=== PATIENT | male | born 1945 | race Two or more races ===

== ENCOUNTER 2023-02-07 18:08 | Emergency (ER) | payer MEDICARE ==
[~2023-02-07] VITALS: Ht 152.4 cm; Wt 72.6 kg
[2023-02-07] MEDS ORDERED: IV NS 0.9% 1,000 ML BAG IV ONE (18:30)
[2023-02-07 18:40] LABS: BASOPHILS % (AUTO) 0.4 % (0.0-2.0); HEMATOCRIT 39 % (39-51); HEMOGLOBIN 12.9 g/dL (13.5-17.5); LYMPHOCYTES # (AUTO) 0.9 K/uL (0.8-4.8); LYMPHOCYTES % (AUTO) 10.3 % (20.0-44.0); MEAN CORPUSCULAR HEMOGLOBIN 32 PG (26.0-33.0); MEAN CORPUSCULAR HGB CONC 33 g/dl (31.0-36.0); MEAN CORPUSCULAR VOLUME 97 fL (80-96); MONOCYTES # (AUTO) 0.7 K/uL (0.1-1.30); MONOCYTES % (AUTO) 8.6 % (2.0-12.0); NEUTROPHILS % (AUTO) 80.7 % (43.0-81.0); PLATELET COUNT (AUTO) 255 K/uL (150-450); RED BLOOD CELL COUNT(AUTO) 4.02 MIL/uL (4.5-6.0); WHITE BLOOD COUNT (AUTO) 8.6 K/uL (4.3-11.0)
[2023-02-07] MEDS ORDERED: ONDANSETRON HCL/PF 4 MG/2 ML VIAL ONE (18:41)
[2023-02-07] MEDS ORDERED: MORPHINE SULFATE INJ 4 MG/ML DISP.SYRIN ONE (18:42)
[2023-02-07 18:49] LABS: CALCIUM, SERUM 9.3 mg/dL (8.5-10.1); CARBON DIOXIDE 20 mmol/L (21-32); CHLORIDE 94 mmol/L (98-107); CREATININE 1.1 mg/dL (0.6-1.3); GLUCOSE 109 mg/dL (74-106); POTASSIUM 3.9 mmol/L (3.5-5.1); SODIUM SERUM 130 mmol/L (136-145); UREA NITROGEN, BLOOD 11 mg/dL (7-18)
[2023-02-07 18:56] LABS: ALBUMIN 3.7 g/dL (3.4-5.0); ALKALINE PHOSPHATASE 76 U/L (46-116); ASPARTATE AMINOTRANSFERASE 21 U/L (15-37); BILIRUBIN,DIRECT 0.2 mg/dL (0.0-0.2); BILIRUBIN,TOTAL 0.5 mg/dL (0.2-1.0); LIPASE 106 U/L (73-393); TOTAL PROTEIN, SERUM 7.2 g/dL (6.4-8.2)
[2023-02-07] MEDS ORDERED: ONDANSETRON HCL/PF 4 MG/2 ML VIAL IVP ONE (19:00)
[2023-02-07] MEDS ORDERED: MORPHINE SULFATE INJ 2 MG/ML DISP.SYRIN IV ONE (19:00)
[2023-02-07 19:13] LABS: ALANINE AMINOTRANSFERASE 18 U/L (12-78)
[2023-02-07 20:10] LABS: APPEARANCE,URINE CLEAR (CLEAR); BILIRUBIN,URINE 1+ (NEGATIVE); BLOOD, URINE NEGATIVE Ery/uL (NEGATIVE); COLOR,URINE YELLOW (YELLOW); KETONES,URINE 3+ mg/dL (NEGATIVE); LEUKOCYTE ESTERASE ,URINE NEGATIVE (NEGATIVE); NITRITE, URINE NEGATIVE (NEGATIVE); PROTEIN,URINE TRACE mg/dl (NEGATIVE); UGLUCOSE NEGATIVE (NEGATIVE); UROBILINOGEN,URINE 0.2 EU/dL (0.2)
[2023-02-07 20:19] LABS: ADD URINE CULTURE NO; BACTERIA,URINE None seen /HPF (None Seen); MUCUS,URINE Few /LPF (None Seen); RBC,URINE 0-2 /HPF (0-2); SQUAMOUS EPITHELIAL CELL,UR 0-2 /HPF (None Seen); WBC,URINE 0-2 /HPF (0-3)
[2023-02-07 21:43] VITALS: BP 119/89; TEMP 98.1; O2SAT 98
== END 2023-02-07 21:44 | disposition left against medical advice (07) ==
LOC: ER 18:28
DX: R10.33 Periumbilical pain (principal); I10 Essential (primary) hypertension; R11.2 Nausea with vomiting, unspecified; E03.9 Hypothyroidism, unspecified; F41.9 Anxiety disorder, unspecified; Z88.2 Allergy status to sulfonamides; Z60.2 Problems related to living alone
CPT/HCPCS: 99285; 74177; 96374; 71045; 96361; 96375; 85025; 80048; 87086; 83690; 80076; 81001; 36415; 84484; 82962; J2270; J2405; J7030; J7050; Q9967

== ENCOUNTER 2025-01-20 17:25 | Inpatient (IN) | payer MEDICARE ==
[~2025-01-20] VITALS: Ht 170.2 cm; Wt 64.4 kg
[2025-01-20] MEDS ORDERED: FENTANYL PF 100MCG/2ML AMPUL ONE (19:30)
[2025-01-21 09:06] LABS: PLATELET COUNT (AUTO) 263 K/uL (150-450); RED BLOOD CELL COUNT(AUTO) 3.71 MIL/uL (4.5-6.0); RED CELL DISTRIBUTION WIDTH 15.4 % (11.5-15.0); WHITE BLOOD COUNT (AUTO) 6.7 K/uL (4.3-11.0)
[2025-01-21 09:13] LABS: CALCIUM, SERUM 9.1 mg/dL (8.5-10.1); CREATININE 1.1 mg/dL (0.6-1.3); SODIUM SERUM 138.0 mmol/L (136-145); UREA NITROGEN, BLOOD 23.0 mg/dL (7-18)
[2025-01-21 09:19] LABS: ASPARTATE AMINOTRANSFERASE 63.0 U/L (15-37); TOTAL PROTEIN, SERUM 7.6 g/dL (6.4-8.2)
[2025-01-21] MEDS ORDERED: ZOLPIDEM TARTRATE 5 MG TABLET PO PRN (12:00)
[2025-01-21] MEDS ORDERED: ACETAMINOPHEN 325 MG TABLET PO PRN (12:00)
[2025-01-21] MEDS ORDERED: MAG HYDROX/AL HYDROX/SIMETH 30 ML UDC PO PRN (12:00)
[2025-01-21] MEDS ORDERED: Z GUARD REMEDY 4 OZ OINT TP PRN (12:00)
[2025-01-21] MEDS ORDERED: ONDANSETRON HCL/PF 4 MG/2 ML VIAL IVP PRN (12:00)
[2025-01-21] MEDS ORDERED: MAGNESIUM HYDROXIDE 30 ML UDC PO PRN (12:00)
[2025-01-21] MEDS: ENOXAPARIN SODIUM 40 MG/0.4 ML DISP.SYRIN SQ SCH (12:36)
[2025-01-21] MEDS ORDERED: TRAZ-257 PO (12:50)
[2025-01-21] MEDS ORDERED: LEVO50TA8 PO (12:50)
[2025-01-21] MEDS ORDERED: SERT50TA12 PO (12:50)
[2025-01-21] MEDS ORDERED: ALPR0.5T8 PO (12:50)
[2025-01-21 16:00] VITALS: BP 125/87; TEMP 98.1; O2SAT 95
[2025-01-21] MEDS: TRAZODONE 50 MG TABLET PO SCH (17:20)
[2025-01-21] MEDS: ALPRAZOLAM 0.5 MG TABLET PO SCH (17:20)
[2025-01-21 21:33] VITALS: BP 131/88; TEMP 97.2; O2SAT 96
[2025-01-21 22:49] LABS: APPEARANCE,URINE SLIGHTLY CLOUDY (CLEAR); BLOOD, URINE NEGATIVE Ery/uL (NEGATIVE); LEUKOCYTE ESTERASE ,URINE 1+ (NEGATIVE); NITRITE, URINE NEGATIVE (NEGATIVE); UGLUCOSE NEGATIVE (NEGATIVE)
[2025-01-21 22:54] LABS: ADD URINE CULTURE YES; SQUAMOUS EPITHELIAL CELL,UR Few /HPF (None Seen)
[2025-01-22 06:41] LABS: PLATELET COUNT (AUTO) 236 K/uL (150-450); RED BLOOD CELL COUNT(AUTO) 3.25 MIL/uL (4.5-6.0); RED CELL DISTRIBUTION WIDTH 15.2 % (11.5-15.0); WHITE BLOOD COUNT (AUTO) 5.1 K/uL (4.3-11.0)
[2025-01-22 06:55] LABS: CALCIUM, SERUM 9.1 mg/dL (8.5-10.1); CREATININE 1.0 mg/dL (0.6-1.3); PHOSPHORUS 3.2 mg/dL (2.5-4.9); SODIUM SERUM 140 mmol/L (136-145); UREA NITROGEN, BLOOD 20 mg/dL (7-18)
[2025-01-22 08:00] VITALS: BP 120/76; TEMP 97.9; O2SAT 96
[2025-01-22] MEDS: PANTOPRAZOLE 40 MG TABLET.DR PO SCH (08:03)
[2025-01-22] MEDS: LEVOTHYROXINE SODIUM 50 MCG TABLET PO SCH (08:03)
[2025-01-22] MEDS: SERTRALINE HCL 50 MG TABLET PO SCH (08:47)
[2025-01-22] MEDS ORDERED: LEVO75TA PO (10:38)
[2025-01-22] MEDS ORDERED: LEVO500T90 PO (10:38)
[2025-01-22] MEDS ORDERED: CEFTRIAXONE 1 G in IV D5W 50 ML IV SCH (11:00)
[2025-01-22] MEDS: MAGNESIUM OXIDE 400 MG TABLET PO ONE (11:25)
[2025-01-22] MEDS: PIPERACILLIN /TAZOBACTAM 3.375 G in IV D5W 50 ML IV SCH (13:19)
[2025-01-22 16:05] VITALS: BP 127/90; TEMP 98.2; O2SAT 98
[2025-01-22 20:00] VITALS: BP 118/87; TEMP 98.1; O2SAT 95
[2025-01-23] MEDS: LEVOTHYROXINE SODIUM 75 MCG TABLET PO SCH (07:39)
[2025-01-23 08:00] VITALS: BP 133/95; TEMP 98.1; O2SAT 96
[2025-01-23] MEDS ORDERED: LEVO50TA8 PO (08:51)
[2025-01-23 09:02] LABS: SODIUM SERUM 141 mmol/L (136-145)
[2025-01-23 09:03] LABS: CALCIUM, SERUM 8.8 mg/dL (8.5-10.1); CREATININE 1.3 mg/dL (0.6-1.3); UREA NITROGEN, BLOOD 17 mg/dL (7-18)
[2025-01-23 16:00] VITALS: BP 133/96; TEMP 98.1; O2SAT 96
[2025-01-23 20:00] VITALS: BP 134/92; TEMP 97.9; O2SAT 96
[2025-01-24 08:00] VITALS: BP 137/87; TEMP 98.4; O2SAT 94
[2025-01-24 08:11] LABS: CALCIUM, SERUM 9.0 mg/dL (8.5-10.1); CREATININE 1.2 mg/dL (0.6-1.3); SODIUM SERUM 141.0 mmol/L (136-145); UREA NITROGEN, BLOOD 13.0 mg/dL (7-18)
[2025-01-24 16:00] VITALS: BP 140/92; TEMP 98.4; O2SAT 94
[2025-01-24 16:30] VITALS: BP 140/92; TEMP 98.4; O2SAT 94
[2025-01-24 20:00] VITALS: BP 121/95; TEMP 98.1; O2SAT 97
[2025-01-25 07:11] LABS: CALCIUM, SERUM 9.1 mg/dL (8.5-10.1); CREATININE 1.2 mg/dL (0.6-1.3); SODIUM SERUM 141.0 mmol/L (136-145); UREA NITROGEN, BLOOD 13.0 mg/dL (7-18)
[2025-01-25 08:00] VITALS: BP 138/90; TEMP 97.9; O2SAT 95
[2025-01-25] MEDS: LEVOFLOXACIN (250MG) 250 MG TABLET PO SCH (08:33)
== END 2025-01-25 17:00 | disposition home or self-care (01) | DRG 563 ==
LOC: ER 17:35 → MED 01-21 11:04
PROVIDERS: ADMIT Student in an Organized Health Care Education/Training Program; ATTEND Internal Medicine
DX: S39.012A Strain of muscle, fascia and tendon of lower back, initial encounter (principal); N39.0 Urinary tract infection, site not specified; E86.0 Dehydration; I10 Essential (primary) hypertension; F41.9 Anxiety disorder, unspecified; Z79.899 Other long term (current) drug therapy; W06.XXXA Fall from bed, initial encounter; Y92.009 Unspecified place in unspecified non-institutional (private) residence as the place of occurrence of the external cause; E03.9 Hypothyroidism, unspecified; Z88.2 Allergy status to sulfonamides; Z79.890 Hormone replacement therapy; Z87.440 Personal history of urinary (tract) infections; E83.42 Hypomagnesemia; B96.20 Unspecified Escherichia coli [E. coli] as the cause of diseases classified elsewhere; R79.89 Other specified abnormal findings of blood chemistry; R74.01 Elevation of levels of liver transaminase levels
CPT/HCPCS: 36415; 71100-TC; 80048-TC; 80076-TC; 81001; 83735-TC; 84100-TC; 84443-TC; 85025-TC; 87086-TC; 87186-TC; 97110-TC; 97116-TC; 97530-TC; 97535-TC; A4223; G0378; J0696; J1650; J2543; J3010; J7050; J7060

== ENCOUNTER 2025-01-28 00:05 | Emergency (ER) | payer MEDICARE ==
[~2025-01-28] VITALS: Ht 170.2 cm; Wt 70.3 kg
[~2025-01-28 00:05] MED LIST: ALPR0.5T8 PO; LEVO500T90 PO; LEVO75TA PO; SERT50TA12 PO; TRAZ-257 PO
[2025-01-28 00:09] VITALS: TEMP 98.4
[2025-01-28] MEDS ORDERED: KETOROLAC TROMETHAMINE INJ 30 MG/ML VIAL ONE (00:37)
[2025-01-28] MEDS: KETOROLAC TROMETHAMINE 15 MG/ML VIAL IV ONE (00:45)
[2025-01-28 00:48] LABS: PLATELET COUNT (AUTO) 202 K/uL (150-450); RED BLOOD CELL COUNT(AUTO) 3.17 MIL/uL (4.5-6.0); RED CELL DISTRIBUTION WIDTH 15.4 % (11.5-15.0); WHITE BLOOD COUNT (AUTO) 6.9 K/uL (4.3-11.0)
[2025-01-28 00:59] LABS: CALCIUM, SERUM 8.9 mg/dL (8.5-10.1); CREATININE 1.0 mg/dL (0.6-1.3); SODIUM SERUM 139.0 mmol/L (136-145); UREA NITROGEN, BLOOD 10.0 mg/dL (7-18)
[2025-01-28 01:10] LABS: ASPARTATE AMINOTRANSFERASE 29.0 U/L (15-37); TOTAL PROTEIN, SERUM 7.1 g/dL (6.4-8.2)
[2025-01-28 02:23] LABS: APPEARANCE,URINE CLEAR (CLEAR); BLOOD, URINE NEGATIVE Ery/uL (NEGATIVE); LEUKOCYTE ESTERASE ,URINE NEGATIVE (NEGATIVE); NITRITE, URINE NEGATIVE (NEGATIVE); UGLUCOSE NEGATIVE (NEGATIVE)
[2025-01-28 02:29] LABS: ADD URINE CULTURE YES; SQUAMOUS EPITHELIAL CELL,UR Moderate /HPF (None Seen)
[2025-01-28] MEDS ORDERED: LEVO75TA PO (03:08)
[2025-01-28 06:00] VITALS: BP 120/85; O2SAT 98
== END 2025-01-28 06:31 | disposition short-term general hospital (02) ==
LOC: ER 00:06
DX: K56.699 Other intestinal obstruction unspecified as to partial versus complete obstruction (principal); K40.20 Bilateral inguinal hernia, without obstruction or gangrene, not specified as recurrent; M54.9 Dorsalgia, unspecified; R07.9 Chest pain, unspecified; D64.9 Anemia, unspecified; E03.9 Hypothyroidism, unspecified; F41.9 Anxiety disorder, unspecified; H54.61 Unqualified visual loss, right eye, normal vision left eye; I10 Essential (primary) hypertension; Z59.01 Sheltered homelessness; Z79.899 Other long term (current) drug therapy; Z88.2 Allergy status to sulfonamides; Z86.79 Personal history of other diseases of the circulatory system; Z87.438 Personal history of other diseases of male genital organs; Z87.448 Personal history of other diseases of urinary system; Z87.39 Personal history of other diseases of the musculoskeletal system and connective tissue; Z86.59 Personal history of other mental and behavioral disorders; Z60.2 Problems related to living alone; Z20.822 Contact with and (suspected) exposure to COVID-19
CPT/HCPCS: 99285; 74176; 96374; 71045; 87426; 93005; 85025; 80048; 87086; 83690; 80076; 81001; 36415; J1885